=== PATIENT | female | born 1975 | race Hispanic/Latino ===

== ENCOUNTER 2016-11-03 18:13 | Emergency (ER) | payer SELFPAY ==
[2016-11-03 19:08] LABS: BASO % 0.6 % (0.0-2.0); EOS # 0.1 K/uL (0.0-0.7); EOS % 1.1 % (0.0-4.0); HEMATOCRIT 30.8 % (34.0-47.0); LYMPH # 1.5 K/uL (1.0-4.3); LYMPH % 26.7 % (20.0-40.0); MEAN CELL VOLUME 84.5 fL (81.0-99.0); MEAN CORPUSCULAR HEMOGLOBIN 27.1 pg (27.0-31.0); MEAN PLATELET VOLUME 7.6 fL (7.2-11.7); MONO # 0.5 K/uL (0.0-0.8); MONO % 8.1 % (0.0-10.0); RED CELL DISTRIBUTION WIDTH 14.8 % (11.5-14.5); WHITE BLOOD COUNT 5.7 K/uL (4.8-10.8)
[2016-11-03 19:19] LABS: CHLORIDE 104 mmol/L (98-107); POTASSIUM 3.2 mmol/L (3.6-5.2); SODIUM 137 mmol/L (132-148)
[2016-11-03 19:21] LABS: GFR AFRICAN-AMERICAN > 60
[2016-11-03 19:22] LABS: ALB/GLOB RATIO 1.2 (1.0-2.1); ALKALINE PHOSPHATASE 62 U/L (38-126); ALT/SGPT 26 U/L (9-52); AST/SGOT 21 U/L (14-36); BILIRUBIN,TOTAL 0.5 mg/dL (0.2-1.3); BLOOD UREA NITROGEN 8 mg/dL (7-17); CARBON DIOXIDE 20 mmol/L (22-30); GLUCOSE,RANDOM 123 mg/dL (65-105); TOTAL PROTEIN 6.6 g/dL (6.3-8.3)
--- NOTE | 2016-11-03 20:05 | C.PDOC ---
History Of Present Illness Patient is a 40 y/o female, whose PMHx includes asthma, that presents to the ED for evaluation of sudden onset of mid sternal chest pain that radiates across front of her chest [employer]. Pt reports associated shortness of breath, and states that her pain is worse with breathing, movement, and sitting. Denies having these type of symptoms in the past. Denies any difficulty breathing prior to the onset of episode, and reports using nebulizer earlier today. Otherwise, denies any dizziness, lightheadedness, palpitations, fever, cough, nausea, vomiting, or any other associated symptoms at this time. Time Seen by Provider: 11/03/16 18:42 Chief Complaint (Nursing): Chest Pain History Per: Patient History/Exam Limitations: no limitations Onset/Duration Of Symptoms: Sudden Onset Current Symptoms Are (Timing): Still Present Quality: "Pain" Associated Symptoms: denies: Nausea, Diaphoresis, Syncope Modifying Factors: None Exacerbating Factors: Movement, Deep Breathing Recent travel outside of the [place]: No Additional History Per: Patient Past Medical History Reviewed: Historical Data, Nursing Documentation, Vital Signs Vital Signs: Last Vital Signs Temp 99 F 11/03/16 18:18 Pulse 102 H 11/03/16 18:57 Resp 20 11/03/16 18:57 BP 109/71 11/03/16 18:57 Pulse Ox 95 11/03/16 20:08 - Medical History PMH: Asthma - [facility] Procedures APPLICATION OF SPLINT (05/27/14) Family History: States: Unknown Family Hx - Social History Hx Tobacco Use: No Hx Alcohol Use: No Hx Substance Use: No - Immunization History Hx Tetanus Toxoid Vaccination: No Hx Influenza Vaccination: Yes (01/2016) Hx Pneumococcal Vaccination: Yes Review Of Systems Except As Marked, All Systems Reviewed And Found Negative. Constitutional: Negative for: Fever, Chills Cardiovascular: Positive for: Chest Pain. Negative for: Palpitations, Edema, Light Headedness Respiratory: Positive for: Shortness of Breath. Negative for: Cough, Hemoptysis , Sputum, Wheezing Gastrointestinal: Negative for: Nausea, Vomiting, Abdominal Pain Neurological: Negative for: Weakness, Numbness, Headache, Dizziness Physical Exam - Physical Exam Appears: Non-toxic, No Acute Distress Skin: Normal Color, Warm, Dry Head: Atraumatic, Normacephalic Eye(s): bilateral: Normal Inspection, EOMI Neck: Normal, Normal ROM, Supple Chest: Symmetrical, Tenderness (sternal borders) Cardiovascular: Rhythm Regular, No Murmur Respiratory: Normal Breath Sounds, No Rales, No Rhonchi, No Wheezing Gastrointestinal/Abdominal: Soft, No Tenderness Extremity: Normal ROM, No Deformity Neurological/Psych: Oriented x3, Normal Speech, Normal Cognition ED Course And Treatment - Laboratory Results Result Diagrams: 11/03/16 10:55 11/03/16 10:55 Lab Interpretation: Abnormal Interpretation Of Abnormal: Mild anemia, K+ 3.2, d-dimer normal ECG: Interpreted By Me ECG Rhythm: Sinus Rhythm ECG Interpretation: Normal O2 Sat by Pulse Oximetry: 95 (on RA) Pulse Ox Interpretation: Normal - Radiology CXR: Interpreted by Me CXR Interpretation: Yes: No Acute Disease Progress Note: Labs, EKG, CXR ordered and reviewed. Patient was given Toradol in the ER. Reevaluation Time: 20:14 Reassessment Condition: Improved (Patient states that she is comfortable now. She is requesting a work note for tomorrow.) Disposition - Disposition Referrals: Deon Peña Jr., MD [Medical Doctor] - Disposition: HOME/ ROUTINE Disposition Time: 20:15 Condition: IMPROVED Additional Instructions: Take Advil 2-3 tablets every 6 hours as needed for pain. Instructions: Chest Wall Pain (ED) Forms: Work Excuse - Clinical Impression Clinical Impression: Chest wall pain - Scribe Statement The provider has reviewed the documentation as recorded by the Beatrizibvidya Mariano All medical record entries made by the Beatrizibvidya were at my direction and personally dictated by me. I have reviewed the chart and agree that the record accurately reflects my personal performance of the history, physical exam, medical decision making, and the department course for this patient. I have also personally directed, reviewed, and agree with the discharge instructions and disposition.
[2016-11-03 21:19] VITALS: BP 106/88; PULSE 92; RESP 18; TEMP 98.2; O2SAT 98
--- NOTE | 2016-11-04 10:08 | RAD ---
PROCEDURE: CHEST RADIOGRAPH, 1 VIEW HISTORY: chest pain COMPARISON: None available. FINDINGS: LUNGS: No focal infiltrate or effusion. PLEURA: No pneumothorax or pleural fluid seen. CARDIOVASCULAR: Normal. OSSEOUS STRUCTURES: Deformity of the distal left clavicle, indeterminate chronicity. VISUALIZED UPPER ABDOMEN: Normal. OTHER FINDINGS: None. IMPRESSION: No focal infiltrate or effusion. Deformity of the distal left clavicle, indeterminate chronicity.
--- NOTE | 2016-11-04 14:01 | CARD ---
APPROVED REPORT EKG Measurement Heart [id number] <Conclusion> Normal sinus rhythm with sinus arrhythmia Normal ECG
== END 2016-11-03 21:12 | disposition home or self-care (01) ==
LOC: C.ER 18:13
DX: R07.89 Other chest pain (principal)
CPT/HCPCS: 36415; 71010; 80053; 84484; 84703; 85025; 85378; 93005; 96374; 99285; J1885

== ENCOUNTER 2018-06-25 13:31 | Outpatient (CLI) | payer MEDICAID | END 2018-06-25 13:32 | disposition home or self-care (01) | LOC: C.MAMMO 13:31 ==